=== PATIENT | female | born 2000 | race Caucasian/White ===

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

== ENCOUNTER 2020-10-12 09:13 | Emergency (ER) | payer MEDICAID ==
[2020-10-12 09:20] VITALS: BP 122/60
== END 2020-10-12 10:57 | disposition left against medical advice (07) ==
LOC: ED 09:13
DX: R55 Syncope and collapse (principal); Z53.21 Procedure and treatment not carried out due to patient leaving prior to being seen by health care provider